=== PATIENT | female | born 1950 | race Caucasian/White ===

== ENCOUNTER 2017-08-12 08:31 | Day surgery (SDC) | payer OTHER ==
[~2017-08-12] VITALS: Ht 172.7 cm; Wt 150.6 kg
[~2017-08-12 08:31] MED LIST: ACCUPRIL40 MG PO; ADULT ASPIRIN81 MG PO; BASAGLAR K100 UNIT/1 SC; CELEXA20 MG PO; GLUCOPHAGE500 MG PO; LASIX40 MG PO; LIPITOR20 MG PO; NORVASC10 MG PO; NOVOLOG PE100 UNITS/ SC; PROTONIX40 MG PO; SINGULAIR10 MG PO; SYNTHROID150 MCG PO; TENORMIN100 MG PO; TRICOR145 MG PO; TRULICITY1.5 MG/0.5 SC; ULTRAM50 MG PO; VENTOLIN HFA18 GM IH; WELLBUTRIN100 MG PO
== END 2017-08-12 10:10 | disposition home or self-care (01) ==
LOC: PAIN 08:31 → SDC 09:00 → PAIN 10:10
PROVIDERS: Anesthesiology Pain Medicine
PROC: 3E0T3BZ Introduction of Anesthetic Agent into Peripheral Nerves and Plexi, Percutaneous Approach (ICD-10-PCS; principal; 2017-08-12)
PROC: 3E0T33Z Introduction of Anti-inflammatory into Peripheral Nerves and Plexi, Percutaneous Approach (ICD-10-PCS; principal; 2017-08-12)
PROC: BR161ZZ Fluoroscopy of Lumbar Facet Joint(s) using Low Osmolar Contrast (ICD-10-PCS; principal; 2017-08-12)
DX: M47.816 Spondylosis without myelopathy or radiculopathy, lumbar region (principal); M51.36 Other intervertebral disc degeneration, lumbar region; E66.01 Morbid (severe) obesity due to excess calories; Z68.43 Body mass index [BMI] 50.0-59.9, adult; I10 Essential (primary) hypertension; E78.5 Hyperlipidemia, unspecified; E11.9 Type 2 diabetes mellitus without complications; G47.30 Sleep apnea, unspecified; J45.909 Unspecified asthma, uncomplicated; K21.9 Gastro-esophageal reflux disease without esophagitis; E03.9 Hypothyroidism, unspecified; Z79.4 Long term (current) use of insulin; Z79.82 Long term (current) use of aspirin
CPT/HCPCS: 82948; 93005; J1030; J2250; S0020

== ENCOUNTER 2017-08-19 08:42 | Day surgery (SDC) | payer OTHER ==
[~2017-08-19] VITALS: Ht 172.7 cm; Wt 150.0 kg
== END 2017-08-19 09:43 | disposition home or self-care (01) ==
LOC: PAIN 08:42 → SDC 09:15 → PAIN 09:43
PROVIDERS: Anesthesiology Pain Medicine
DX: M47.816 Spondylosis without myelopathy or radiculopathy, lumbar region (principal); M51.26 Other intervertebral disc displacement, lumbar region; E11.9 Type 2 diabetes mellitus without complications; I10 Essential (primary) hypertension; E78.5 Hyperlipidemia, unspecified; K21.9 Gastro-esophageal reflux disease without esophagitis; E03.9 Hypothyroidism, unspecified; J45.909 Unspecified asthma, uncomplicated; Z88.0 Allergy status to penicillin
CPT/HCPCS: 82948; J1030; J2250; S0020